=== PATIENT | female | born 1935 | race Caucasian/White ===

== ENCOUNTER 2016-05-19 11:59 | Outpatient (CLI) | payer MEDICARE, OTHER ==
[2016-02-14 22:54] VITALS: BP 135/83
== END 2016-05-19 12:00 ==
LOC: LAB 11:59
PROVIDERS: ATTEND Internal Medicine Cardiovascular Disease
DX: I48.0 Paroxysmal atrial fibrillation (principal)
CPT/HCPCS: 36415; 85610

== ENCOUNTER 2016-06-02 09:33 | Outpatient (CLI) | payer MEDICARE, OTHER ==
[2016-02-14 22:54] VITALS: BP 135/83
== END 2016-06-02 09:44 ==
LOC: LAB 09:33
PROVIDERS: ATTEND Internal Medicine Cardiovascular Disease
DX: Z51.81 Encounter for therapeutic drug level monitoring (principal); Z79.01 Long term (current) use of anticoagulants; I48.2 Chronic atrial fibrillation
CPT/HCPCS: 36415; 85610

== ENCOUNTER 2016-06-23 09:57 | Outpatient (CLI) | payer MEDICARE, OTHER ==
[2016-02-14 22:54] VITALS: BP 135/83
== END 2016-06-23 10:00 ==
LOC: RT 09:57
PROVIDERS: ATTEND Internal Medicine Cardiovascular Disease
DX: I48.91 Unspecified atrial fibrillation (principal)

== ENCOUNTER 2016-07-07 09:48 | Outpatient (CLI) | payer MEDICARE, OTHER ==
[2016-02-14 22:54] VITALS: BP 135/83
== END 2016-07-07 09:50 ==
LOC: LAB 09:48
PROVIDERS: ATTEND Internal Medicine Cardiovascular Disease
DX: Z51.81 Encounter for therapeutic drug level monitoring (principal); Z79.01 Long term (current) use of anticoagulants; I48.0 Paroxysmal atrial fibrillation
CPT/HCPCS: 36415; 85610

== ENCOUNTER 2016-07-31 12:36 | Outpatient (CLI) | payer MEDICARE, OTHER ==
[2016-02-14 22:54] VITALS: BP 135/83
== END 2016-07-31 12:38 ==
LOC: LAB 12:36
PROVIDERS: ATTEND Internal Medicine Cardiovascular Disease
DX: Z51.81 Encounter for therapeutic drug level monitoring (principal); Z79.01 Long term (current) use of anticoagulants; I48.0 Paroxysmal atrial fibrillation
CPT/HCPCS: 36415; 85610

== ENCOUNTER 2016-09-07 09:23 | Outpatient (CLI) | payer MEDICARE, OTHER ==
[2016-02-14 22:54] VITALS: BP 135/83
== END 2016-09-07 09:24 ==
LOC: LAB 09:23
PROVIDERS: ATTEND Internal Medicine Cardiovascular Disease
DX: Z51.81 Encounter for therapeutic drug level monitoring (principal); Z79.01 Long term (current) use of anticoagulants; I48.0 Paroxysmal atrial fibrillation
CPT/HCPCS: 36415; 85610

== ENCOUNTER 2016-10-01 11:11 | Outpatient (CLI) | payer MEDICARE, OTHER ==
[2016-02-14 22:54] VITALS: BP 135/83
[2016-10-01 11:51] LABS: eGFR (African) > 60; eGFR (Non-African) > 60
--- NOTE | 2016-10-01 13:55 | Diagnostic Imaging Report ---
LUCIA JAMES [facility] [address] [facility] [address] [place], [place]. [address] Report Submission Date: October 01, 2016 11:56:21 AM CDT Patient Study Name: JOE PEÑA Date: October 01, 2016 11:27:35 AM CDT Modality Type: CR Gender: F Description: CHEST : 39 Institution: [facility] Physician: LUCIA JAMES Pa and lateral chest Clinical history :short of breath and wheezing Comparison: June 07, 2015 Technique pa and lateral upright Findings: The lung lim are clear. I see no hilar or mediastinal mass. There is no pleural effusion. There is multilevel thoracic spondylosis. Lung lim are hyperinflated. Aortic atherosclerosis. Cardiomegaly is also present. Impression: No acute pulmonary disease Hyperinflation Cardiomegaly is now present. Previously the heart size is normal Electronically signed on October 01, 2016 11:56:21 AM CDT by: Chuy REYNOLDS
== END 2016-10-01 11:12 ==
LOC: LAB 11:11
PROVIDERS: ATTEND Physician Assistant
DX: I48.91 Unspecified atrial fibrillation (principal); I50.9 Heart failure, unspecified; R06.02 Shortness of breath; R42 Dizziness and giddiness
CPT/HCPCS: 36415; 71020; 80053; 83880; 84484

== ENCOUNTER 2016-10-09 14:13 | Outpatient (CLI) | payer MEDICARE, OTHER ==
[2016-02-14 22:54] VITALS: BP 135/83
[2016-10-09 14:55] LABS: eGFR (African) > 60; eGFR (Non-African) > 60
== END 2016-10-09 14:14 ==
LOC: LAB 14:13
PROVIDERS: ATTEND Internal Medicine Cardiovascular Disease
DX: I48.0 Paroxysmal atrial fibrillation (principal); I50.32 Chronic diastolic (congestive) heart failure
CPT/HCPCS: 36415; 80048; 83880; 85610

== ENCOUNTER 2016-11-05 10:13 | Outpatient (CLI) | payer MEDICARE, OTHER ==
[2016-02-14 22:54] VITALS: BP 135/83
== END 2016-11-05 10:14 ==
LOC: LAB 10:13
PROVIDERS: ATTEND Internal Medicine Cardiovascular Disease
DX: I48.0 Paroxysmal atrial fibrillation (principal)
CPT/HCPCS: 36415; 85610

== ENCOUNTER 2016-12-04 09:52 | Outpatient (CLI) | payer MEDICARE, OTHER ==
[2016-02-14 22:54] VITALS: BP 135/83
== END 2016-12-04 09:53 ==
LOC: LAB 09:52
PROVIDERS: ATTEND Internal Medicine Cardiovascular Disease
DX: I48.0 Paroxysmal atrial fibrillation (principal)
CPT/HCPCS: 36415; 85610

== ENCOUNTER 2016-12-09 16:40 | Outpatient (CLI) | payer MEDICARE, OTHER ==
[2016-02-14 22:54] VITALS: BP 135/83
[2016-12-09 17:10] LABS: BASOPHILS % 1.2 (0.0-1.5); EOSINOPHILS % 6.3 % (0.0-6.8); MEAN CORPUSCULAR HEMOGLOBIN 26.4 pg (28.0-34.0); MEAN CORPUSCULAR VOLUME 85.6 fl (80.0-100.0); NEUTROPHILS # 3.9 # k/uL (1.4-7.7)
[2016-12-09 17:23] LABS: eGFR (African) > 60; eGFR (Non-African) 39
== END 2016-12-09 16:42 ==
LOC: LAB 16:40
PROVIDERS: ATTEND Family Medicine
DX: D64.9 Anemia, unspecified (principal); I10 Essential (primary) hypertension; R53.83 Other fatigue; R63.4 Abnormal weight loss; Z51.81 Encounter for therapeutic drug level monitoring
CPT/HCPCS: 36415; 80053; 84443; 85025

== ENCOUNTER 2017-02-09 13:11 | Outpatient (CLI) | payer MEDICARE, OTHER ==
[2016-02-14 22:54] VITALS: BP 135/83
== END 2017-02-09 13:12 ==
LOC: LAB 13:11
PROVIDERS: ATTEND Internal Medicine Cardiovascular Disease
DX: I48.0 Paroxysmal atrial fibrillation (principal)
CPT/HCPCS: 36415; 85610

== ENCOUNTER → 2017-03-01 | Outpatient (CLI) | payer MEDICARE, OTHER ==
[2016-02-14 22:54] VITALS: BP 135/83
== END ==
LOC: LAB 10:24
PROVIDERS: ATTEND Internal Medicine Cardiovascular Disease
DX: I48.0 Paroxysmal atrial fibrillation (principal)
CPT/HCPCS: 36415; 85610

== ENCOUNTER 2017-03-22 10:38 | Outpatient (CLI) | payer MEDICARE, OTHER ==
[2016-02-14 22:54] VITALS: BP 135/83
== END 2017-03-22 10:45 ==
LOC: LAB 10:38
PROVIDERS: ATTEND Internal Medicine Cardiovascular Disease
DX: I48.0 Paroxysmal atrial fibrillation (principal)
CPT/HCPCS: 36415; 85610

== ENCOUNTER 2017-04-07 11:55 | Outpatient (CLI) | payer MEDICARE, OTHER ==
[2016-02-14 22:54] VITALS: BP 135/83
== END 2017-04-07 11:56 ==
LOC: LAB 11:55
PROVIDERS: ATTEND Internal Medicine Cardiovascular Disease
DX: I48.0 Paroxysmal atrial fibrillation (principal)
CPT/HCPCS: 36415; 85610

== ENCOUNTER 2017-04-23 13:33 | Outpatient (CLI) | payer MEDICARE, OTHER ==
[2016-02-14 22:54] VITALS: BP 135/83
== END 2017-04-23 13:35 ==
LOC: LAB 13:33
PROVIDERS: ATTEND Internal Medicine Cardiovascular Disease
DX: Z79.01 Long term (current) use of anticoagulants (principal)
CPT/HCPCS: 36415; 85610

== ENCOUNTER 2017-04-30 11:04 | Outpatient (CLI) | payer MEDICARE, OTHER ==
[2016-02-14 22:54] VITALS: BP 135/83
[2017-04-30 11:20] LABS: BASOPHILS % 0.6 (0.0-1.5); EOSINOPHILS % 2.9 % (0.0-6.8); MEAN CORPUSCULAR HEMOGLOBIN 24.3 pg (28.0-34.0); MEAN CORPUSCULAR VOLUME 81.8 fl (80.0-100.0); NEUTROPHILS # 4.3 # k/uL (1.4-7.7)
[2017-04-30 11:35] LABS: eGFR (African) > 60; eGFR (Non-African) > 60
--- NOTE | 2017-04-30 12:26 | Diagnostic Imaging Report ---
BRENDAN SINGH [facility] [address] [facility] [address] [address] Report Submission Date: Apr 30, 2017 11:55:40 AM WHEEL PRESSER Patient Study Name: JOE PEÑA Date: Apr 30, 2017 11:21:46 AM WHEEL PRESSER Modality Type: CR Gender: F Description: CHEST : 39 Institution: [facility] Physician: BRENDAN SINGH Examination: PA and lateral chest. History: Evaluate lung lim. Comparison exam: 01 Oct 2016 Findings: PA lateral chest demonstrate a normal cardiac and mediastinal silhouette. Mild tortuosity of thoracic aorta. Few vascular calcifications involving the aortic arch. Mild parenchymal haziness left lower lung. No blunting of the costophrenic margins. Osseous structures are appropriate for age. Impression: Mild left lower lung parenchymal haziness. No effusion. Electronically signed on Apr 30, 2017 11:55:40 AM WHEEL PRESSER by: Marco Antonio REYNOLDS
== END 2017-04-30 11:10 ==
LOC: LAB 11:04
PROVIDERS: ATTEND Family Medicine
DX: I10 Essential (primary) hypertension (principal); I50.23 Acute on chronic systolic (congestive) heart failure; R06.09 Other forms of dyspnea
CPT/HCPCS: 36415; 71020; 80053; 83880; 85025

== ENCOUNTER 2017-05-12 12:53 | Outpatient (CLI) | payer MEDICARE, OTHER ==
[2016-02-14 22:54] VITALS: BP 135/83
== END 2017-05-12 12:54 ==
LOC: LAB 12:53
PROVIDERS: ATTEND Internal Medicine Cardiovascular Disease
DX: Z79.01 Long term (current) use of anticoagulants (principal)
CPT/HCPCS: 36415; 85610

== ENCOUNTER 2017-05-24 12:55 | Outpatient (CLI) | payer MEDICARE, OTHER ==
[2016-02-14 22:54] VITALS: BP 135/83
[2017-05-24 13:16] LABS: BASOPHILS % 0.7 (0.0-1.5); MEAN CORPUSCULAR HEMOGLOBIN 23.2 pg (28.0-34.0); MEAN CORPUSCULAR VOLUME 80.3 fl (80.0-100.0); MONOCYTES % 8.4 % (0.0-11.0); NEUTROPHILS # 5.3 # k/uL (1.4-7.7)
== END 2017-05-24 13:00 ==
LOC: LAB 12:55
PROVIDERS: ATTEND Family Medicine
DX: D64.9 Anemia, unspecified (principal); Z79.01 Long term (current) use of anticoagulants
CPT/HCPCS: 36415; 85025; 85610

== ENCOUNTER 2017-05-25 10:02 | Outpatient (CLI) | payer MEDICARE, OTHER ==
[2016-02-14 22:54] VITALS: BP 135/83
== END 2017-05-25 10:03 ==
LOC: LAB 10:02 → INF 10:03
PROVIDERS: ATTEND Family Medicine
DX: D50.0 Iron deficiency anemia secondary to blood loss (chronic) (principal)
CPT/HCPCS: 36415; 36430; 86885; 86900; 86901; 86920; P9040; S1016

== ENCOUNTER 2017-07-20 13:03 | Outpatient (CLI) | payer MEDICARE, OTHER ==
[2016-02-14 22:54] VITALS: BP 135/83
== END 2017-07-20 13:40 ==
LOC: LAB 13:03
PROVIDERS: ATTEND Internal Medicine Cardiovascular Disease
DX: Z79.01 Long term (current) use of anticoagulants (principal)
CPT/HCPCS: 36415; 85610

== ENCOUNTER 2017-08-18 09:37 | Outpatient (CLI) | payer MEDICARE, OTHER ==
[2016-02-14 22:54] VITALS: BP 135/83
== END 2017-08-18 09:40 ==
LOC: LAB 09:37
PROVIDERS: ATTEND Internal Medicine Cardiovascular Disease
DX: Z79.01 Long term (current) use of anticoagulants (principal)
CPT/HCPCS: 36415; 85610

== ENCOUNTER 2017-08-24 11:17 | Outpatient (CLI) | payer MEDICARE, OTHER ==
[2016-02-14 22:54] VITALS: BP 135/83
[2017-08-24 11:35] LABS: BASOPHILS % 0.8 (0.0-1.5); EOSINOPHILS % 2.3 % (0.0-6.8); MEAN CORPUSCULAR VOLUME 77.9 fl (80.0-100.0); NEUTROPHILS # 4.7 # k/uL (1.4-7.7)
[2017-08-24 11:36] LABS: MEAN CORPUSCULAR HEMOGLOBIN 20.2 pg (28.0-34.0)
[2017-08-24 12:23] LABS: eGFR (African) > 60; eGFR (Non-African) > 60
== END 2017-08-24 11:19 ==
LOC: LAB 11:17
PROVIDERS: ATTEND Family Medicine
DX: D50.0 Iron deficiency anemia secondary to blood loss (chronic) (principal); I10 Essential (primary) hypertension
CPT/HCPCS: 36415; 80053; 85025

== ENCOUNTER 2017-08-26 06:50 | Outpatient (CLI) | payer MEDICARE, OTHER ==
[2016-02-14 22:54] VITALS: BP 135/83
[2017-08-26] MEDS ORDERED: ACETAMINOPHEN 325 MG TABLET ONE ×2 (10:32→14:12)
[2017-08-26] MEDS ORDERED: 0.9 % SODIUM CHLORIDE 100 ML IV ONE ×2 (10:33→15:41)
[2017-08-26] MEDS ORDERED: diphenhydrAMINE HCL 25 MG TABLET PO ONE ×2 (10:33→14:13)
[2017-08-26] MEDS ORDERED: FUROSEMIDE 20 MG/2 ML VIAL ONE (15:14)
== END 2017-08-26 07:00 ==
LOC: OUT 06:50 → LAB 06:50
PROVIDERS: ATTEND Family Medicine
DX: D50.9 Iron deficiency anemia, unspecified (principal)
CPT/HCPCS: 36415; J1940; Q0163

== ENCOUNTER 2017-08-31 12:38 | Outpatient (CLI) | payer MEDICARE, OTHER ==
[2016-02-14 22:54] VITALS: BP 135/83
[2017-08-31 13:00] LABS: BASOPHILS % 0.9 (0.0-1.5); EOSINOPHILS % 2.4 % (0.0-6.8); MEAN CORPUSCULAR HEMOGLOBIN 22.2 pg (28.0-34.0); MEAN CORPUSCULAR VOLUME 79.9 fl (80.0-100.0); NEUTROPHILS # 3.7 # k/uL (1.4-7.7)
== END 2017-08-31 12:40 ==
LOC: LAB 12:38
PROVIDERS: ATTEND Family Medicine
DX: D50.0 Iron deficiency anemia secondary to blood loss (chronic) (principal)
CPT/HCPCS: 36415; 85025

== ENCOUNTER 2017-09-23 12:29 | Outpatient (CLI) | payer MEDICARE, OTHER ==
[2016-02-14 22:54] VITALS: BP 135/83
== END 2017-09-23 12:30 ==
LOC: LAB 12:29
PROVIDERS: ATTEND Internal Medicine Cardiovascular Disease
DX: Z79.01 Long term (current) use of anticoagulants (principal)
CPT/HCPCS: 36415; 85610

== ENCOUNTER 2017-10-01 13:47 | Outpatient (CLI) | payer MEDICARE, OTHER ==
[2016-02-14 22:54] VITALS: BP 135/83
== END 2017-10-01 14:00 ==
LOC: LAB 13:47
PROVIDERS: ATTEND Internal Medicine Cardiovascular Disease
DX: Z79.01 Long term (current) use of anticoagulants (principal)
CPT/HCPCS: 36415; 85610

== ENCOUNTER 2017-11-17 10:31 | Outpatient (CLI) | payer MEDICARE, OTHER ==
[2016-02-14 22:54] VITALS: BP 135/83
[2017-11-17 11:00] LABS: BASOPHILS % 0.8 (0.0-1.5); MEAN CORPUSCULAR HEMOGLOBIN 21.5 pg (28.0-34.0); MEAN CORPUSCULAR VOLUME 78.9 fl (80.0-100.0)
== END 2017-11-17 10:33 ==
LOC: LAB 10:31
PROVIDERS: ATTEND Family Medicine
DX: D50.0 Iron deficiency anemia secondary to blood loss (chronic) (principal)
CPT/HCPCS: 36415; 85025; 85610

== ENCOUNTER 2018-01-07 09:56 | Outpatient (CLI) | payer MEDICARE, OTHER ==
[2016-02-14 22:54] VITALS: BP 135/83
[2018-01-07 10:28] LABS: MEAN CORPUSCULAR HEMOGLOBIN 20.5 pg (28.0-34.0)
[2018-01-07 10:30] LABS: MEAN CORPUSCULAR VOLUME 74.4 fl (80.0-100.0)
[2018-01-07 10:31] LABS: BASOPHILS % 0.6 (0.0-1.5); EOSINOPHILS % 1.8 % (0.0-6.8)
[2018-01-07 10:32] LABS: NEUTROPHILS # 5.7 # k/uL (1.4-7.7)
== END 2018-01-07 10:10 ==
LOC: LAB 09:56
PROVIDERS: ATTEND Internal Medicine Cardiovascular Disease
DX: D64.9 Anemia, unspecified (principal); Z79.01 Long term (current) use of anticoagulants
CPT/HCPCS: 36415; 85025; 85610

== ENCOUNTER 2018-02-04 10:27 | Outpatient (CLI) | payer MEDICARE, OTHER ==
[2016-02-14 22:54] VITALS: BP 135/83
== END 2018-02-04 10:30 ==
LOC: LAB 10:27
PROVIDERS: ATTEND Internal Medicine Cardiovascular Disease
DX: Z79.01 Long term (current) use of anticoagulants (principal)
CPT/HCPCS: 36415; 85610

== ENCOUNTER 2018-02-23 14:33 | Outpatient (CLI) | payer MEDICARE, OTHER ==
[2016-02-14 22:54] VITALS: BP 135/83
== END 2018-02-23 14:35 ==
LOC: LAB 14:33
PROVIDERS: ATTEND Internal Medicine Cardiovascular Disease
DX: Z79.01 Long term (current) use of anticoagulants (principal)
CPT/HCPCS: 36415; 85610

== ENCOUNTER 2018-03-08 12:46 | Outpatient (CLI) | payer MEDICARE, OTHER ==
[2016-02-14 22:54] VITALS: BP 135/83
== END 2018-03-08 12:48 ==
LOC: LAB 12:46
PROVIDERS: ATTEND Internal Medicine Cardiovascular Disease
DX: Z79.01 Long term (current) use of anticoagulants (principal)
CPT/HCPCS: 36415; 85610

== ENCOUNTER 2018-03-25 13:27 | Outpatient (CLI) | payer MEDICARE, OTHER ==
[2016-02-14 22:54] VITALS: BP 135/83
== END 2018-03-25 17:33 | disposition home or self-care (01) ==
LOC: LAB 13:27
PROVIDERS: ATTEND Internal Medicine Cardiovascular Disease
DX: Z79.01 Long term (current) use of anticoagulants (principal)
CPT/HCPCS: 36415; 85610

== ENCOUNTER 2018-04-07 06:51 | Outpatient (CLI) | payer MEDICARE, OTHER ==
[2016-02-14 22:54] VITALS: BP 135/83
[2018-04-07] MEDS ORDERED: 0.9 % SODIUM CHLORIDE 100 ML IV ONE (07:49)
[2018-04-07] MEDS ORDERED: ACETAMINOPHEN 325 MG TABLET ONE ×3 (08:55→13:10)
[2018-04-07] MEDS ORDERED: diphenhydrAMINE HCL 25 MG TABLET PO ONE ×2 (08:55→08:57)
[2018-04-07] MEDS ORDERED: FUROSEMIDE 20 MG/2 ML VIAL ONE ×2 (08:55→13:10)
[2018-04-07] MEDS ORDERED: SALINE FLUSH 10 ML DISP.SYRIN IVF ONE (08:55)
== END 2018-04-07 06:52 ==
LOC: OUT 06:51
PROVIDERS: ATTEND Family Medicine
DX: D50.9 Iron deficiency anemia, unspecified (principal)
CPT/HCPCS: 36415; 36430; 86885; 86900; 86920; 96374; J1940; Q0163; P9040; S1016

== ENCOUNTER 2018-05-02 10:53 | Outpatient (CLI) | payer MEDICARE, OTHER ==
[2016-02-14 22:54] VITALS: BP 135/83
[2018-05-02 11:12] LABS: BASOPHILS % 0.4 (0.0-1.5); EOSINOPHILS % 2.7 % (0.0-6.8); MEAN CORPUSCULAR HEMOGLOBIN 21.5 pg (28.0-34.0); MONOCYTES % 9.3 % (0.0-11.0)
== END 2018-05-02 11:00 ==
LOC: LAB 10:53
PROVIDERS: ATTEND Family Medicine
DX: D50.0 Iron deficiency anemia secondary to blood loss (chronic) (principal)
CPT/HCPCS: 36415; 85025; 85610

== ENCOUNTER 2018-05-17 13:22 | Outpatient (CLI) | payer MEDICARE, OTHER ==
[2016-02-14 22:54] VITALS: BP 135/83
== END 2018-05-17 13:23 ==
LOC: LAB 13:22
PROVIDERS: ATTEND Internal Medicine Cardiovascular Disease
DX: Z79.01 Long term (current) use of anticoagulants (principal)
CPT/HCPCS: 36415; 85610

== ENCOUNTER 2018-05-25 09:01 | Outpatient (CLI) | payer MEDICARE, OTHER ==
[2016-02-14 22:54] VITALS: BP 135/83
== END 2018-05-25 09:04 ==
LOC: LAB 09:01
PROVIDERS: ATTEND Internal Medicine Cardiovascular Disease
DX: Z79.01 Long term (current) use of anticoagulants (principal)
CPT/HCPCS: 36415; 85610

== ENCOUNTER 2018-05-29 13:56 | Emergency (ER) | payer MEDICARE, OTHER ==
[2016-02-14 22:54] VITALS: BP 135/83
--- NOTE | 2018-05-29 18:27 | Diagnostic Imaging Report ---
JUSTYN RACHEL [facility] [address] On License Of [facility] [address] [address] Report Submission Date: May 29, 2018 3:08:17 PM FIELD RECORDER Patient Study Name: JOE PEÑA Date: May 29, 2018 2:13:19 PM FIELD RECORDER MRN: [id number] Modality Type: DX Gender: F Description: LOWER EXTREMITY : 39 Institution: [facility] Physician: JUSTYN RACHEL Right foot 3 views Clinical history pain Technique AP lateral oblique. Findings: There is 1st metatarsophalangeal joint degenerative arthritis. No fracture lytic changes identified. Calcaneal spurs are present. There soft tissue swelling. The degenerative right is present throughout the forefoot midfoot and hindfoot Impression: Soft tissue swelling Degenerative arthritis No displaced foot fracture is identified Calcaneal spurs Electronically signed on May 29, 2018 3:08:17 PM FIELD RECORDER by: Chuy REYNOLDS
== END 2018-05-29 15:45 | disposition home or self-care (01) ==
LOC: ED 13:56
DX: S93.601A Unspecified sprain of right foot, initial encounter (principal); W01.0XXA Fall on same level from slipping, tripping and stumbling without subsequent striking against object, initial encounter; Y93.01 Activity, walking, marching and hiking; Y92.481 Parking lot as the place of occurrence of the external cause
CPT/HCPCS: 29515; 73630; 99282; 99283

== ENCOUNTER 2018-06-14 12:08 | Outpatient (CLI) | payer MEDICARE, OTHER ==
[2016-02-14 22:54] VITALS: BP 135/83
== END 2018-06-14 12:15 ==
LOC: LAB 12:08
PROVIDERS: ATTEND Internal Medicine Cardiovascular Disease
DX: Z79.01 Long term (current) use of anticoagulants (principal); Z51.81 Encounter for therapeutic drug level monitoring
CPT/HCPCS: 36415; 85610

== ENCOUNTER 2018-07-05 12:09 | Outpatient (CLI) | payer MEDICARE, OTHER ==
[2016-02-14 22:54] VITALS: BP 135/83
== END 2018-07-05 12:15 ==
LOC: LAB 12:09
PROVIDERS: ATTEND Internal Medicine Cardiovascular Disease
DX: Z79.01 Long term (current) use of anticoagulants (principal)
CPT/HCPCS: 36415; 85610

== ENCOUNTER 2018-07-18 13:33 | Outpatient (CLI) | payer MEDICARE, OTHER ==
[2016-02-14 22:54] VITALS: BP 135/83
== END 2018-07-18 13:35 ==
LOC: LAB 13:33
PROVIDERS: ATTEND Internal Medicine Cardiovascular Disease
DX: Z79.01 Long term (current) use of anticoagulants (principal)
CPT/HCPCS: 36415; 85610

== ENCOUNTER 2018-08-16 14:27 | Outpatient (CLI) | payer MEDICARE, OTHER ==
[2016-02-14 22:54] VITALS: BP 135/83
== END 2018-08-16 14:32 | disposition home or self-care (01) ==
LOC: LAB 14:27
PROVIDERS: ATTEND Internal Medicine Cardiovascular Disease
DX: Z79.01 Long term (current) use of anticoagulants (principal)
CPT/HCPCS: 36415; 85610

== ENCOUNTER 2018-10-12 16:20 | Emergency (ER) | payer MEDICARE, OTHER ==
[2016-02-14 22:54] VITALS: BP 135/83
[2018-10-12] MEDS ORDERED: traMADol HCL 50 MG TABLET ONE (16:36)
--- NOTE | 2018-11-17 12:04 | Diagnostic Imaging Report ---
PHILLIP TEJEDA [facility] [address] [facility].[address] [address] Report Submission Date: Oct 12, 2018 5:06:40 PM CDT Patient Study Name: JOE PEÑA Date: Oct 12, 2018 4:40:43 PM CDT Modality Type: DX Gender: M Description: KNEE 3 VIEWS : 39 Institution: [facility] Physician: PHILLIP TEJEDA Left knee, 3 views HISTORY Knee pain, swelling FINDINGS The patient is status post left knee arthroplasty. The prosthesis appears in good position. There is no fracture, dislocation or abnormal bone production or destruction. Since 09/16/2018, no change has occurred. IMPRESSION Stable left knee arthroplasty. Electronically signed on Oct 12, 2018 5:06:40 PM CDT by: Martín REYNOLDS
== END 2018-10-12 17:37 ==
LOC: ED 16:20
DX: S83.92XA Sprain of unspecified site of left knee, initial encounter (principal); W19.XXXA Unspecified fall, initial encounter
CPT/HCPCS: 29530; 36415; 73562; 85651; 86140; 99283

== ENCOUNTER 2018-10-18 14:27 | Outpatient (CLI) | payer MEDICARE, OTHER ==
[2016-02-14 22:54] VITALS: BP 135/83
== END 2018-10-18 14:32 | disposition home or self-care (01) ==
LOC: LAB 14:27
PROVIDERS: ATTEND Internal Medicine Cardiovascular Disease
DX: Z51.81 Encounter for therapeutic drug level monitoring (principal); Z79.01 Long term (current) use of anticoagulants
CPT/HCPCS: 36415; 85610

== ENCOUNTER 2018-10-26 12:55 | Outpatient (CLI) | payer MEDICARE, OTHER ==
[2016-02-14 22:54] VITALS: BP 135/83
== END 2018-10-26 13:02 | disposition home or self-care (01) ==
LOC: LAB 12:55
PROVIDERS: ATTEND Internal Medicine Cardiovascular Disease
DX: Z79.01 Long term (current) use of anticoagulants (principal); Z51.81 Encounter for therapeutic drug level monitoring
CPT/HCPCS: 36415; 85610

== ENCOUNTER 2018-11-09 13:09 | Outpatient (CLI) | payer MEDICARE, OTHER ==
[2016-02-14 22:54] VITALS: BP 135/83
== END 2018-11-09 13:11 ==
LOC: LAB 13:09
PROVIDERS: ATTEND Internal Medicine Cardiovascular Disease
DX: Z79.01 Long term (current) use of anticoagulants (principal); Z51.81 Encounter for therapeutic drug level monitoring
CPT/HCPCS: 36415; 85610

== ENCOUNTER 2018-11-26 18:01 | Emergency (ER) | payer MEDICARE, OTHER ==
[2018-11-26] MEDS ORDERED: ONDANSETRON HCL/PF 4 MG/ 2ML VIAL IVP ONE (18:37)
[2018-11-26] MEDS ORDERED: 0.9 % SODIUM CHLORIDE 1,000 ML IV ONE (18:37)
--- NOTE | 2018-11-26 18:37 | ED Physician Documentation ---
General Adult - HISTORIAN Historian: patient, child - HPI Stated Complaint: weakness with frequent fall Chief Complaint: General Adult Additional Information: Patient presents to ED with a 4 day history of weakness and frequent falls. Patient was in [place] on vacation with her family. She began to have weakness and has fallen 4 times over the past 4 days. She states she feels like she passes out but comes to when she hit the floor. She has hit her head several times. She has a history of atrial fibrillation (on coumadin), parkinson's disease, history of GI bleed (requiring blood transfusion May&Mar 2018). She admits to shortness of breath and nausea. Upon further investigation patient reports red in her stool, however, she thought is was because of the twizzlers licorice she ate. Onset: days ago (4) Timing: still present Severity: moderate - ROS CONST: denies: fever EYES/ENT: denies: problems with vision CVS/RESP: shortness of breath. denies: chest pain GI/: vomiting, nausea - PAST HX Past History: A-Fib, other (Parkinsons disease) Other History: none Surgeries/Procedures: Allergies/Adverse Reactions: Allergies Allergy/AdvReac Type Severity Reaction Status Date / Time celecoxib [From Celebrex] Allergy Verified 11/26/18 18:47 Home Medications: Ambulatory Orders Medication Instructions Recorded Warfarin Sodium 2.5 mg PO [id number] 10/05/13 Warfarin Sodium 5 mg PO [id number] 10/05/13 Carbidopa/Levodopa [Sinemet] 1 each PO TID 02/14/16 QUEtiapine FUMARATE [Seroquel] 25 mg PO TID 02/14/16 - SOCIAL HX Smoking History: non-smoker Alcohol Use: none Drug Use: none - FAMILY HX Family History: No - VITAL SIGNS Vital Signs: Vital Signs Temp Pulse Resp BP Pulse Ox 135/83 02/14/16 20:00 - REVIEWED ASSESSMENTS Nursing Assessment Reviewed: Yes Vitals Reviewed: Yes Progress - Progress Progress: 1944 Hgb 4.0, INR 5.43. Will give 1 unit O negative blood and Vit K 10mg IM 1954 Discussed with Jessenia Weekly, DELIVERY TECH for admission. Directing admission to higher level of care due to no telemetry monitoring at this time. 2004 Discussed with [place] greenhouse technician for transfer. Awaiting call back for acceptance. 2019 Dr. Dozier with [facility] accepts patient for transfer. Will arrange transport - EKG/XRAY/CT Comments: 1827 Atrial Fibrillation 99 bpm ED Results Lab/Radiology - Radiology Radiology Impressions: Report Submission Date: Nov 26, 2018 7:24:15 PM CDT Patient Study Name: JOE PEÑA Date: Nov 26, 2018 6:36:36 PM CDT Modality Type: DX Gender: M Description: CHEST 1VIEW : 39 Institution: [facility] Physician: JUSTYN KELSEY Chest, AP portable History: Weakness Findings: No infiltrate, effusion or pneumothorax is present. Heart size, mediastinum and pulmonary vascularity are normal. Since 01 Oct 2016, no change has occurred. Impression: No active pulmonary disease. Electronically signed on Nov 26, 2018 7:24:15 PM CDT by: Martín Anand Report Submission Date: Nov 26, 2018 7:24:57 PM CDT Patient Study Name: JOE PEÑA Date: Nov 26, 2018 6:36:36 PM CDT Modality Type: DX Gender: M Description: SHOULDER 2 VIEWS OR MORE : 39 Institution: [facility] Physician: JUSTYN KELSEY Right shoulder, 2 views History: Shoulder pain Findings: There is no fracture, dislocation or abnormal bone destruction. Joint space narrowing and spur formation are noted at the acromioclavicular joint. Impression: Acromioclavicular osteoarthritis. Electronically signed on Nov 26, 2018 7:24:57 PM CDT by: Martín Anand Report Submission Date: Nov 26, 2018 7:26:12 PM CDT Patient Study Name: JOE PEÑA Date: Nov 26, 2018 7:02:17 PM CDT Modality Type: CT\SR Gender: M Description: CT BRAIN W/O CONTRAST : 39 Institution: [facility] Physician: JUSTYN KELSEY CT head without contrast History: Fall, weakness Technique: Images through the brain were obtained without contrast. Findings: No mass, midline shift, hydrocephalus or hemorrhage is present. The ventricles and cortical sulci are enlarged, consistent with atrophy. No extraaxial fluid collection is identified. Impression: No acute intracranial process. Electronically signed on Nov 26, 2018 7:26:12 PM CDT by: Martín Anand - Orders Orders: ED Orders Category Date Time Status CHEST 1VIEW [RAD] Stat Exams 11/26/[address] BRAIN W/O CONTRAST Stat Exams 11/26/18 Ordered SHOULDER 2 VIEWS OR MORE [RAD] Stat Exams 11/26/18 Ordered CBC/PLATELET/DIFF Routine Lab 11/26/18 Ordered CMP Routine Lab 11/26/18 Ordered NTBNP Stat Lab 11/26/18 Ordered PT-INR Routine Lab 11/26/18 Ordered TROPONIN I Stat Lab 11/26/18 Ordered UA W/MICRO IF INDICATED Stat Lab 11/26/18 18:24 Ordered EKG WITH COMPARISON Stat Ther 11/26/18 Ordered General Adult Physical Exam - PHYSICAL EXAM GENERAL APPEARANCE: ill-appearing EENT: KIMBERLEE, other (2 cm Contusion, right forehead and right parietal area) NECK: supple RESPIRATORY: no resp distress, chest non-tender, breath sounds normal CVS: irregularly irregular rhy, other (3/5 systolic murmur) ABDOMEN: soft, non-tender, decreased BS BACK: normal inspection SKIN: pallor EXTREMITIES: non-tender, no edema (2 cm contusion to right anterior shoulder ) NEURO: oriented X3, motor nml, sensation nml, mood/affect nml Discharge Clincal Impression: Acute blood loss anemia GI bleed Qualifiers: GI bleed type/associated pathology: unspecified gastrointestinal hemorrhage type Qualified Code(s): K92.2 - Gastrointestinal hemorrhage, unspecified Referrals: Wolf Shah MD [Primary Care Provider] - 2 Days Comments: Patient was transferred to [facility] under the care of Dr. Barnett. Condition: Stable Disposition: 02 XFER SHT-TRM HOSP Decision to Admit: NO Date of Decison to Admit: 11/26/18 Decision Time: 20:25
--- NOTE | 2018-11-26 19:25 | Diagnostic Imaging Report ---
JUSTYN KELSEY [facility] [address] [facility].[address] [address] Report Submission Date: Nov 26, 2018 7:24:15 PM CDT Patient Study Name: JOE PEÑA Date: Nov 26, 2018 6:36:36 PM CDT Modality Type: DX Gender: M Description: CHEST 1VIEW : 39 Institution: [facility] Physician: JUSTYN KELSEY Chest, AP portable History: Weakness Findings: No infiltrate, effusion or pneumothorax is present. Heart size, mediastinum and pulmonary vascularity are normal. Since 01 Oct 2016, no change has occurred. Impression: No active pulmonary disease. Electronically signed on Nov 26, 2018 7:24:15 PM CDT by: Martín REYNOLDS
--- NOTE | 2018-11-26 19:26 | Diagnostic Imaging Report ---
JUSTYN KELSEY [facility] [address] [address] Report Submission Date: Nov 26, 2018 7:24:57 PM CDT Patient Study Name: JOE PEÑA Date: Nov 26, 2018 6:36:36 PM CDT Modality Type: DX Gender: M Description: SHOULDER 2 VIEWS OR MORE : 39 Institution: [facility] Physician: JUSTYN KELSEY Right shoulder, 2 views History: Shoulder pain Findings: There is no fracture, dislocation or abnormal bone destruction. Joint space narrowing and spur formation are noted at the acromioclavicular joint. Impression: Acromioclavicular osteoarthritis. Electronically signed on Nov 26, 2018 7:24:57 PM CDT by: Martín REYNOLDS
--- NOTE | 2018-11-26 19:26 | Diagnostic Imaging Report ---
JUSTYN KELSEY [facility] [address] [facility] [address] [address] Report Submission Date: Nov 26, 2018 7:26:12 PM CDT Patient Study Name: JOE PEÑA Date: Nov 26, 2018 7:02:17 PM CDT Modality Type: CT\SR Gender: M Description: CT BRAIN W/O CONTRAST : 39 Institution: [facility] Physician: JUSTYN KELSEY CT head without contrast History: Fall, weakness Technique: Images through the brain were obtained without contrast. Findings: No mass, midline shift, hydrocephalus or hemorrhage is present. The ventricles and cortical sulci are enlarged, consistent with atrophy. No extraaxial fluid collection is identified. Impression: No acute intracranial process. Electronically signed on Nov 26, 2018 7:26:12 PM CDT by: Martín REYNOLDS
[2018-11-26] MEDS ORDERED: PHYTONADIONE 10 MG/1 ML IM ONE (19:41)
[2018-11-26] MEDS ORDERED: HYDROcodone /APAP 5/325 1 EACH TABLET PO ONE (19:44)
[2018-11-26] MEDS ORDERED: 0.9 % SODIUM CHLORIDE 500 ML IV ONE (19:46)
[2018-11-26 20:02] LABS: SEGMENTED NEUTROPHILS % 75 % (39-79)
[2018-11-26] MEDS: 0.9 % SODIUM CHLORIDE 500 ML IV ONE ×2 (20:42→21:39)
[2018-11-26 21:50] VITALS: BP 108/69
== END 2018-11-26 21:09 | disposition short-term general hospital (02) ==
LOC: ED 18:01
DX: D50.0 Iron deficiency anemia secondary to blood loss (chronic) (principal); K92.2 Gastrointestinal hemorrhage, unspecified
CPT/HCPCS: 70450; 71045; 73030; 80053; 83880; 84484; 85025; 85610; 96360; 96365; 96372; 99284; J2405; J3430; J7060; A9270-GY; J7030; S1016

== ENCOUNTER 2018-12-26 13:55 | Outpatient (CLI) | payer MEDICARE, OTHER ==
[2018-12-26 14:11] LABS: BASOPHILS % 0.6 % (0.0-1.5); NEUTROPHILS # 4.8 # k/uL (1.4-7.7)
[2018-12-26 14:42] LABS: eGFR (Non-African) > 60
== END 2018-12-26 13:57 ==
LOC: LAB 13:55
PROVIDERS: ATTEND Family Medicine
DX: K92.2 Gastrointestinal hemorrhage, unspecified (principal); D50.0 Iron deficiency anemia secondary to blood loss (chronic)
CPT/HCPCS: 36415; 80053; 85025

== ENCOUNTER 2019-01-08 13:35 | Emergency (ER) | payer MEDICARE, OTHER ==
--- NOTE | 2019-01-08 14:04 | ED Physician Documentation ---
General Adult - HISTORIAN Historian: patient - HPI Stated Complaint: dark stools Chief Complaint: General Adult Onset: hours Timing: still present Severity: mild Further Comments: yes (Pt is an 83 yo female who had a GI bleed in November 2018. Pt has had some black bm's and was told that should this occur, she should be seen in ER. Pt has no physical complaints. Pt states that she recently began taking iron pills. She was not aware that iron supplements cause black bm's.) - ROS CONST: no problems EYES/ENT: none CVS/RESP: none GI/: black stools MS/SKIN/LYMPH: none - PAST HX Past History: other (Hx Afib, anxiety, GI bleed (November 2018). ) Surgeries/Procedures: hysterectomy Allergies/Adverse Reactions: Allergies Allergy/AdvReac Type Severity Reaction Status Date / Time celecoxib [From Celebrex] Allergy Verified 01/08/19 13:54 Home Medications: Ambulatory Orders Medication Instructions Recorded Carbidopa/Levodopa [Sinemet] 1 each PO TID 02/14/16 - SOCIAL HX Smoking History: non-smoker Alcohol Use: none Drug Use: none - FAMILY HX Family History: No - VITAL SIGNS Vital Signs: Vital Signs Temp Pulse Resp BP Pulse Ox 95.9 F L 90 19 130/89 96 01/08/19 13:48 01/08/19 13:48 01/08/19 13:48 01/08/19 13:48 01/08/19 13:48 - REVIEWED ASSESSMENTS Nursing Assessment Reviewed: Yes Vitals Reviewed: Yes Progress - Progress Progress: Pt reassured with neg hemocult. General Adult Physical Exam - PHYSICAL EXAM GENERAL APPEARANCE: no distress EENT: pharynx normal NECK: normal inspection, supple RESPIRATORY: no resp distress, chest non-tender, breath sounds normal CVS: reg rate & rhythm, heart sounds normal ABDOMEN: soft, no organomegaly, normal bowel sounds RECTAL: normal exam, other (heme negative stool) BACK: normal inspection, no CVA tenderness SKIN: warm/dry, normal color EXTREMITIES: non-tender, normal range of motion, no evidence of injury NEURO: oriented X3, motor nml, sensation nml Discharge Clincal Impression: black stool, 2nd to iron supplement, concern for GI bleed Referrals: Wolf Shah MD [Primary Care Provider] - Condition: Good Disposition: 01 HOME, SELF-CARE Decision to Admit: NO Decision Time: 14:28
== END 2019-01-08 14:09 | disposition home or self-care (01) ==
LOC: ED 13:35
DX: R19.5 Other fecal abnormalities (principal)

== ENCOUNTER 2019-01-20 10:13 | Outpatient (CLI) | payer MEDICARE, OTHER ==
--- NOTE | 2019-01-26 09:40 | Diagnostic Imaging Report ---
FIDEL JEFF [facility] [address] [facility] [address] [place], [place]. [address] Report Submission Date: Jan 20, 2019 10:38:36 AM CDT Patient Study Name: JOE PEÑA Date: Jan 20, 2019 10:16:31 AM CDT Modality Type: DX Gender: M Description: CHEST 2VIEW : 39 Institution: [facility] Physician: FIDEL JEFF Examination: PA and lateral chest. History: Evaluate lung lim. Comparison exam: 28 November 2018 Findings: PA and lateral views of the chest demonstrates a normal cardiac and mediastinal silhouette. Tortuous aorta. No focal infiltrate. No blunting of the costophrenic margins. Osseous structures are appropriate for age. Impression: No acute pulmonary process. Electronically signed on Jan 20, 2019 10:38:36 AM CDT by: Marco Antonio REYNOLDS
== END 2019-01-20 10:15 ==
LOC: RAD 10:13
PROVIDERS: ATTEND Internal Medicine Gastroenterology
DX: R13.14 Dysphagia, pharyngoesophageal phase (principal); K92.1 Melena; R06.09 Other forms of dyspnea
CPT/HCPCS: 71046